=== PATIENT | male | born 2000 | race African-American/Black ===

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

== ENCOUNTER 2021-12-27 05:00 | Emergency (ER) | payer MEDICAID ==
[~2021-12-27] VITALS: Ht 177.8 cm; Wt 59.0 kg
[2021-12-27] MEDS ORDERED: MORPHINE SULFATE INJECTION 2 MG/ML SYRG IV ONE ×2 (05:45)
[2021-12-27] MEDS ORDERED: KETOROLAC TROMETH 30 MG/ML 1ML VIAL IM ONE (09:15)
[2021-12-27 10:46] VITALS: BP 134/74
== END 2021-12-27 10:47 | disposition home or self-care (01) ==
LOC: ER 05:00
DX: S92.255A Nondisplaced fracture of navicular [scaphoid] of left foot, initial encounter for closed fracture (principal); W18.39XA Other fall on same level, initial encounter; Y93.89 Activity, other specified; Y92.89 Other specified places as the place of occurrence of the external cause; Y99.8 Other external cause status
CPT/HCPCS: 29125; 73090; 73110; 73130; 96372; 96374; 99285; J1885; J2270

== ENCOUNTER 2022-03-12 15:19 | Emergency (ER) | payer MEDICAID ==
[~2022-03-12] VITALS: Ht 177.8 cm; Wt 59.9 kg
[2022-03-12 15:37] VITALS: BP 116/71
== END 2022-03-12 16:25 | disposition home or self-care (01) ==
LOC: ER 15:19
DX: S62.002D Unspecified fracture of navicular [scaphoid] bone of left wrist, subsequent encounter for fracture with routine healing (principal); W18.39XD Other fall on same level, subsequent encounter
CPT/HCPCS: 29125; 73110

== ENCOUNTER 2022-08-25 01:58 | Emergency (ER) | payer MEDICAID ==
[~2022-08-25] VITALS: Ht 177.8 cm; Wt 60.5 kg
[2022-08-25 04:55] VITALS: BP 125/75
[2022-08-25] MEDS ORDERED: IBUP800T27 PO (04:57)
== END 2022-08-25 05:02 | disposition home or self-care (01) ==
LOC: ER 02:01
DX: S62.635A Displaced fracture of distal phalanx of left ring finger, initial encounter for closed fracture (principal); J45.909 Unspecified asthma, uncomplicated; Z79.1 Long term (current) use of non-steroidal anti-inflammatories (NSAID); Z91.048 Other nonmedicinal substance allergy status; W01.0XXA Fall on same level from slipping, tripping and stumbling without subsequent striking against object, initial encounter; Y93.89 Activity, other specified; Y92.89 Other specified places as the place of occurrence of the external cause; Y99.8 Other external cause status
CPT/HCPCS: 29130; 73130

== ENCOUNTER 2022-11-18 00:21 | Emergency (ER) | payer MEDICAID ==
[~2022-11-18] VITALS: Ht 177.8 cm; Wt 61.3 kg
[~2022-11-18 00:21] MED LIST: IBUP800T27 PO
[2022-11-18 01:01] VITALS: BP 137/84
== END 2022-11-18 04:10 | disposition left against medical advice (07) ==
LOC: ER 00:21
DX: R21 Rash and other nonspecific skin eruption (principal); M79.646 Pain in unspecified finger(s); Z53.21 Procedure and treatment not carried out due to patient leaving prior to being seen by health care provider

== ENCOUNTER 2022-12-27 20:37 | Emergency (ER) | payer MEDICAID ==
[~2022-12-27] VITALS: Ht 177.8 cm; Wt 61.4 kg
[2022-12-27] MEDS ORDERED: IBUPROFEN 600 MG TAB PO ONE (22:30)
[2022-12-28] MEDS ORDERED: IBUP800T26 PO (01:07)
[2022-12-28] MEDS ORDERED: DICL1GEL50 TD (01:07)
[2022-12-28 01:31] VITALS: BP 106/67
== END 2022-12-28 01:47 | disposition home or self-care (01) ==
LOC: ER 20:37
DX: S93.401A Sprain of unspecified ligament of right ankle, initial encounter (principal); J45.909 Unspecified asthma, uncomplicated; Z88.6 Allergy status to analgesic agent; W01.0XXA Fall on same level from slipping, tripping and stumbling without subsequent striking against object, initial encounter; Y93.67 Activity, basketball; Y92.89 Other specified places as the place of occurrence of the external cause; Y99.8 Other external cause status
CPT/HCPCS: 73610